=== PATIENT | male | born 1940 | race Two or more races ===

== ENCOUNTER → 2021-05-09 | Outpatient (CLI) | payer OTHER ==
[~2021-05-09] VITALS: Ht 177.8 cm; Wt 75.7 kg
[2021-05-09] VITALS (8 sets, daily range): BP systolic 122–143; BP diastolic 54–88
[~2021-05-09] MED LIST: REGENERON 1200mg/250ml NS 250 ML IV ONE
== END | disposition home or self-care (01) ==
LOC: ER 10:28
PROVIDERS: ATTEND Internal Medicine
DX: U07.1 COVID-19 (principal)
CPT/HCPCS: J7050; M0243; Q0244

== ENCOUNTER 2024-03-18 06:55 | Inpatient (IN) | payer OTHER ==
[2024-03-18] VITALS (18 sets, daily range): BP systolic 120–156; BP diastolic 77–87; PULSE 57–114; RESP 12–20; TEMP 97.3–98.4; O2SAT 90–100
[~2024-03-18] VITALS: Ht 177.8 cm; Wt 82.5 kg
[~2024-03-18 06:55] MED LIST changes: +GEMF-66 PO; -REGENERON 1200mg/250ml NS 250 ML IV ONE
[2024-03-18] MEDS: ROPIVACAINE 0.5% (5MG/ML) 20ML AMPULE IJ ONE (07:34)
[2024-03-18] MEDS: TRANEXAMIC ACID 20 ML ONE (07:34)
[2024-03-18] MEDS: ceFAZolin 2 GM/D5W50ml 50 ML IV ONE (07:39)
[2024-03-18] MEDS: TETRACAINE 1% INJ 2 ML VIAL IJ ONE (07:58)
[2024-03-18] MEDS ORDERED: MORPHINE SULF PF 5 MG/10 ML VIAL ONE (08:00)
[2024-03-18] MEDS ORDERED: MIDAZOLAM HCL 2MG/2ML 2ml VIAL (1mg/ml) ONE (08:00)
[2024-03-18] MEDS ORDERED: fentaNYL CITRATE 100 MCG/2 ML VL ONE (08:00)
[2024-03-18] MEDS ORDERED: KETOROLAC TROMETH 30 MG/ML 1ML VIAL ONE (08:13)
[2024-03-18] MEDS: BUPIVACAINE 0.25% INJ 50ML VIAL ONE (08:15)
[2024-03-18] MEDS: EPINEPHrine HCL 1 MG/1 ML AMP ONE (08:15)
[2024-03-18] MEDS ORDERED: KETOROLAC TROMETH 30 MG/ML 1ML VIAL IV PRN (10:15)
[2024-03-18] MEDS ORDERED: DexAMETHasone SOD PHOS 10MG/1ML VIAL INJ IV PRN (10:15)
[2024-03-18] MEDS ORDERED: ONDANSETRON HCL 4 MG/2 ML VIAL IV PRN ×2 (10:15→10:45)
[2024-03-18] MEDS ORDERED: diphenhdrAMINE HCL 50 MG/1 ML VL IV PRN (10:15)
[2024-03-18] MEDS ORDERED: NALOXONE HCL 0.4 MG/ML VIAL IV PRN (10:15)
[2024-03-18] MEDS: NALBUPHINE HCL 10 MG/1ml INJECTION SUBCUT ONE (10:15)
[2024-03-18] MEDS ORDERED: HYDROmorphone HCL 2 MG/ML VL/or syr IV PRN (10:15)
[2024-03-18] MEDS: VANCOMYCIN HCL 1000 MG VL ONE (10:25)
[2024-03-18] MEDS ORDERED: ONDANSETRON HCL 4 MG/2 ML VIAL ONE (10:39)
[2024-03-18] MEDS ORDERED: PROPOFOL 10 MG/ML 20 ML IV ONE (10:39)
[2024-03-18] MEDS ORDERED: oxyCODONE HCL 5MG TAB PO PRN (11:30)
[2024-03-18] MEDS: ACETAMINOPHEN 325 MG TAB PO SCH (12:00)
[2024-03-18] MEDS: KETOROLAC TROMETH 30 MG/ML 1ML VIAL IV SCH (12:00)
[2024-03-18] MEDS: SODIUM CHLORIDE 0.9% 1,000 ML IV SCH (12:41)
[2024-03-18] MEDS: ceFAZolin 2 GM/D5W50ml 50 ML IV SCH (16:42)
[2024-03-18] MEDS: PREGABALIN 25 MG CAP PO SCH (21:59)
[2024-03-18] MEDS: oxyCODONE HCL 5MG TAB PO PRN (23:52)
[2024-03-19] VITALS (21 sets, daily range): BP systolic 92–147; BP diastolic 49–84; PULSE 67–89; RESP 16–20; TEMP 36.7; O2SAT 92–100
[2024-03-19] MEDS: GEMFIBROZIL 600 MG TAB PO SCH (06:06)
[2024-03-19 07:03] LABS: Basophils # (auto) 0 10 ^3/uL (0-0.2); Basophils % (auto) 0.4 % (0.0-2.0); Eosinophils # (auto) 0.1 10 ^3/uL (0-0.8); Eosinophils % (auto) 1.8 % (0.0-7.0); Hematocrit 35.7 % (41.0-53.0); Hemoglobin 12.2 g/dL (13.5-17.5); Lymphocytes # (auto) 0.5 10 ^3/uL (0.4-5.4); Mean Corpuscular Hgb Conc. 34.2 g/dL (32.0-36.0); Mean Corpuscular Volume 90.6 fL (80.0-100.0); Monocytes # (auto) 0.4 10 ^3/uL (0-1.3); Monocytes % (auto) 8.8 % (0.0-12.0); Neutrophils # (auto) 3.6 10 ^3/uL (1.6-8.6); Platelet Count (auto) 184 10^3/uL (140-450); Red Blood Cells 3.94 10^6/uL (4.5-5.90); Red Cell Distribution Width 14.1 % (11.8-14.3); White Blood Cell 4.6 10^3/uL (4.4-10.8)
[2024-03-19 07:06] LABS: Anion Gap 6 (5-15); Carbon Dioxide 24 mmol/L (20-30); Chloride 108 mmol/L (98-107); Potassium 3.8 mmol/L (3.5-5.1); Sodium 138 mmol/L (136-145)
[2024-03-19 07:07] LABS: Calcium 8.4 mg/dL (8.7-10.4)
[2024-03-19 07:11] LABS: Glucose 121 mg/dL (74-106)
[2024-03-19 07:12] LABS: BUN/Creatinine Ratio 21.4 (10.0-20.0); Blood Urea Nitrogen 15 mg/dL (9-23)
[2024-03-19] MEDS: APIXABAN 2.5 MG TAB PO SCH (09:18)
[2024-03-20 01:23] VITALS: BP 128/48; PULSE 84; RESP 18; TEMP 98.3; O2SAT 95
[2024-03-20 05:00] VITALS: BP 140/48; PULSE 92; RESP 18; TEMP 98.6; O2SAT 92
[2024-03-20 08:00] VITALS: PULSE 82
[2024-03-20 08:10] VITALS: PULSE 84; RESP 17; O2SAT 100
[2024-03-20 08:42] VITALS: BP 107/44; PULSE 84; RESP 17; TEMP 98.5; O2SAT 100
[2024-03-20 13:14] VITALS: BP 117/50; PULSE 70; RESP 17; TEMP 98.2; O2SAT 95
== END 2024-03-20 13:05 | disposition home health service (06) | DRG 470 ==
LOC: SUR 06:55 → OVERFLOW 10:40 → WEST WING 12:49
PROVIDERS: ADMIT Orthopaedic Surgery; ATTEND Hospitalist
PROC: 0SRB06Z Replacement of Left Hip Joint with Oxidized Zirconium on Polyethylene Synthetic Substitute, Open Approach (ICD-10-PCS; principal; 2024-03-18 08:39)
DX: M16.12 Unilateral primary osteoarthritis, left hip (principal); Z79.899 Other long term (current) drug therapy
CPT/HCPCS: 36415; 72170; 73502; 80048; 85025; 86850; 86900; 86901; 97110; 97116; 97163; 97530; G0378; J0171; J1885; J2250; J2405; J2704; J3490